=== PATIENT | male | born 2000 | race Caucasian/White ===

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

== ENCOUNTER → 2019-08-28 | Outpatient (CLI) | payer OTHER | END | disposition home or self-care (01) | LOC: LAB EV 16:38 → LAB SHORT 16:38 | DX: M10.9 Gout, unspecified (principal) | CPT/HCPCS: 84550 ==

== ENCOUNTER 2020-10-26 16:53 | Inpatient (IN) | payer OTHER ==
[~2020-10-26] VITALS: Ht 172.7 cm; Wt 86.2 kg
[2020-10-26 18:27] LABS: BASOPHILS ABSOLUTE AUTO 0.04 K/mm3 (0.00-0.23); BASOPHILS PERCENT AUTO 0 % (0-2); EOSINOPHILS ABSOLUTE AUTO 0.07 K/mm3 (0.00-0.68); EOSINOPHILS PERCENT AUTO 1 % (0-6); Hematocrit 41.4 % (37.0-53.0); Hemoglobin 14.5 g/dL (13.5-17.5); IMMATURE GRAN ABSOLUTE AUTO 0.03 K/mm3 (0.00-0.10); IMMATURE GRAN PERCENT AUTO 0 % (0-1); LYMPHOCYTES ABSOLUTE AUTO 1.34 K/mm3 (0.84-5.20); LYMPHOCYTES PERCENT AUTO 12 % (21-46); MONOCYTES ABSOLUTE AUTO 0.81 K/mm3 (0.16-1.47); MONOCYTES PERCENT AUTO 7 % (4-13); Mean Corpuscular HGB 30.3 pg (26.0-34.0); Mean Corpuscular Volume 86 fL (80-100); Mean Platelet Volume 8.8 fL (9.1-12.4); NEUTROPHILS PERCENT AUTO 80 % (41-73); Platelet Count 368 K/mm3 (150-400); RDW Coefficient Variation 11.7 % (11.7-14.2); RDW Standard Deviation 37.2 fL (35.1-46.3); Red Blood Cell Count 4.79 M/mm3 (4.30-5.90); White Blood Cell Count 11.19 K/mm3 (4.00-11.30)
[2020-10-26 18:46] LABS: Alanine Aminotransfer (ALT/SGP 70 U/L (12-78); Albumin, Blood 3.6 g/dL (3.4-5.0); Albumin/Globulin Ratio 0.8 (0.8-1.8); Alk Phos 98 U/L (50-136); Anion Gap 6 mmol/L (6-16); Aspartate Aminotrans (AST/SGOT 29 U/L (12-37); Bilirubin, Total 0.6 mg/dL (0.1-1.0); Blood Urea Nitrogen 8 mg/dL (8-24); Bun/Creatinine Ratio 11.2 (12.0-20.0); CO2, Blood 26 mmol/L (21-32); Calcium, Blood 9.1 mg/dL (8.5-10.1); Chloride, Blood 107 mmol/L (98-108); Creatinine, Blood 0.71 mg/dL (0.60-1.20); Globulin, Blood 4.5 g/dL (2.2-4.0); Glomerular Filtration Rate >60 (60-); Glucose, Blood 88 mg/dL (70-99); Potassium, Blood 3.8 mmol/L (3.5-5.5); Sodium, Blood 139 mmol/L (136-145); Total Protein, Blood 8.1 g/dL (6.4-8.2)
--- NOTE | 2020-10-26 19:45 | NUR ---
pt arrived to room 228 from er dept oriented to room layout offered gown pt wanting to wear his own clothes for now pt has had abd pain for est 5 days with poor appeatite had a exposure to covid and thought it might be that pain was getting worse and he decided to come in
[2020-10-26 20:34] LABS: SARS-Cov-2 (COVID-19) PCR, MMC NEGATIVE (NEGATIVE)
[2020-10-27 04:22] LABS: BASOPHILS ABSOLUTE AUTO 0.04 K/mm3 (0.00-0.23); BASOPHILS PERCENT AUTO 0 % (0-2); EOSINOPHILS ABSOLUTE AUTO 0.14 K/mm3 (0.00-0.68); EOSINOPHILS PERCENT AUTO 1 % (0-6); Hematocrit 39.9 % (37.0-53.0); Hemoglobin 13.8 g/dL (13.5-17.5); IMMATURE GRAN ABSOLUTE AUTO 0.04 K/mm3 (0.00-0.10); IMMATURE GRAN PERCENT AUTO 0 % (0-1); LYMPHOCYTES ABSOLUTE AUTO 2.13 K/mm3 (0.84-5.20); LYMPHOCYTES PERCENT AUTO 20 % (21-46); MONOCYTES ABSOLUTE AUTO 1.04 K/mm3 (0.16-1.47); MONOCYTES PERCENT AUTO 10 % (4-13); Mean Corpuscular HGB 30.3 pg (26.0-34.0); Mean Corpuscular HGB Conc 34.6 g/dL (31.5-36.5); Mean Corpuscular Volume 88 fL (80-100); Mean Platelet Volume 8.9 fL (9.1-12.4); NEUTROPHILS ABSOLUTE AUTO 7.34 K/mm3 (1.96-9.15); NEUTROPHILS PERCENT AUTO 68 % (41-73); Platelet Count 355 K/mm3 (150-400); RDW Coefficient Variation 11.8 % (11.7-14.2); RDW Standard Deviation 38.1 fL (35.1-46.3); Red Blood Cell Count 4.56 M/mm3 (4.30-5.90); White Blood Cell Count 10.73 K/mm3 (4.00-11.30)
[2020-10-27 04:39] LABS: Anion Gap 6 mmol/L (6-16); Blood Urea Nitrogen 7 mg/dL (8-24); Bun/Creatinine Ratio 7.6 (12.0-20.0); CO2, Blood 26 mmol/L (21-32); Calcium, Blood 9.6 mg/dL (8.5-10.1); Chloride, Blood 107 mmol/L (98-108); Creatinine, Blood 0.93 mg/dL (0.60-1.20); Glomerular Filtration Rate >60 (60-); Glucose, Blood 91 mg/dL (70-99); Potassium, Blood 3.9 mmol/L (3.5-5.5); Sodium, Blood 139 mmol/L (136-145)
--- NOTE | 2020-10-27 06:35 | NUR ---
PT NEW ADMIT THIS SHIFT FOR RUPTURED APPY. PT VSS; BP NOTED ELEVATED UPON ARRIVAL, PT ASYMPTOMATIC, BP IS WNL THIS AM. PAIN MGD W/1 NORCO W/REP RELIEF. PT HAD NO C/O N/V, NO BM. PT NPO POST MIDNIGHT PENDING SURGERY PLANNING. ABX CONT PER ORDERS.
--- NOTE | 2020-10-27 11:51 | NUR ---
PT TO OR FOR APPENDECTOMY.
--- NOTE | 2020-10-27 13:39 | NUR ---
10/27/20 1333 Betzy Jeffrey WENT OPEN AT 1307
--- NOTE | 2020-10-27 17:53 | NUR ---
SHIFT SUMMARY NO ACUTE CHANGES T/O SHIFT, A&O, C/O MINIMAL PAIN AND DID NOT REQUEST PAIN MEDS THIS AM. WENT TO SURGERY EARLY AFTERNOON FOR APPY AND ENDED UP REQUIRING A COLECTOMY. PT BACK TO ROOM, POST OP VITALS BEING COMPLETED, VSS AT THIS TIME, ON 3 L/MIN NC, A&O. PT C/O PAIN/PRESSURE IN HIS ABD, TREATED PER EMAR PRN. PT IS CURRENTLY RESTING QUIETLY c SISTER @ BEDSIDE. MIDLINE DRESSING INTACT, c RED DRAINGAGE THAT WAS PRESENT UPON RETURN TO UNIT. MAKI DRAIN PATENT AND DRAINING. ANTONY PATENT AND DRAINING DARK YELLOW CLEAR URINE.
--- NOTE | 2020-10-28 00:57 | NUR ---
BEDSIDE REPORT GIVEN TO RAE OLIVA RN.
--- NOTE | 2020-10-28 07:48 | NUR ---
SHIFT SUMMARY: PT POD#1 FOR A R CHINO COLECTOMY. MIDLINE RODRÍGUEZ C/D/I WITH A MODERATE AMOUNT OF SHADOWING PRESENT. MAKI TO LLQ COMPRESSED AND DRAINING SS DRG. 40CC EMPTIED THIS SHIFT. PT PAINFUL THROUGHOUT NIGHT. MEDICATED WITH 1MG DILAUDID PER ORDERS. PT C/O PHLEM IN HIS THROAT AND HAVING A DIFFICULT TIME COUGHING D/T PAIN. PT GIVEN INCENTIVE SPIROMETER AND WAS ABLE TO COUGH UP A MODERATE AMOUNT OF MUCUS.
--- NOTE | 2020-10-28 09:52 | NUR ---
0700-recvd report from previous shift RN lcaudine, pt sleeping in bed, bed in lowest position, call light within reach, bed rails up x 2 0920-pt stood at bedside, painful, slight nausea no vomiting [phone] boyce rounding on pt, orders received
--- NOTE | 2020-10-28 18:18 | NUR ---
shift summary: vss, no acute changes. pt reports slight nausea, medicated per mar with improvement. pt tolerating sips of clears, ice chips and juice. ASSOCIATE PUBLISHER begun; upon reassessment pt reports pain control to tolerable levels with ASSOCIATE PUBLISHER, 3-06/29. pt was able to sit up in chair for >1 hr, ambulated into the bathroom, voiding. no flatus at this, positive belching. pt received visitor this shift, is sitting up in bed currently, appears more alert than this AM. midline modesto dressing d/i, compressed, dried drainage, no new shadowing. LQ MAKI drain patent/draining serosanginous fluid.
--- NOTE | 2020-10-29 07:43 | NUR ---
SHIFT SUMMARY: PT S/P RIGHT CHINO COLECTOMY. 110CC OF SS EMPTIED OUT OF MAKI DRAIN. MIDLINE RODRÍGUEZ C/D/I. PAIN WELL MANAGED MOST OF SHIFT WITH DILAUDID BIOLOGICAL SCIENCE TECHNICIAN FISH. PT WOKE UP THIS MORNING C/O SEVERE CRAMPING WHILE AMBULATING TO BATHROOM. PT DENIES PASSING FLATUS. TOLERATING A SMALL AMOUNT OF CLEARS. HYPOACTIVE BT THROUGHOUT. PT ENCOURAGED TO AMBULATE TODAY.
--- NOTE | 2020-10-29 07:54 | NUR ---
5.8MG DILAUDID CLEARED FROM SENIOR ADMINISTRATIVE ASSISTANT THIS SHIFT
[2020-10-29 09:45] LABS: BASOPHILS ABSOLUTE AUTO 0.07 K/mm3 (0.00-0.23); BASOPHILS PERCENT AUTO 1 % (0-2); EOSINOPHILS ABSOLUTE AUTO 0.13 K/mm3 (0.00-0.68); EOSINOPHILS PERCENT AUTO 1 % (0-6); Hematocrit 40.3 % (37.0-53.0); Hemoglobin 13.9 g/dL (13.5-17.5); IMMATURE GRAN ABSOLUTE AUTO 0.09 K/mm3 (0.00-0.10); IMMATURE GRAN PERCENT AUTO 1 % (0-1); LYMPHOCYTES ABSOLUTE AUTO 1.66 K/mm3 (0.84-5.20); LYMPHOCYTES PERCENT AUTO 14 % (21-46); MONOCYTES ABSOLUTE AUTO 1.18 K/mm3 (0.16-1.47); MONOCYTES PERCENT AUTO 10 % (4-13); Mean Corpuscular HGB 30.2 pg (26.0-34.0); Mean Corpuscular HGB Conc 34.5 g/dL (31.5-36.5); Mean Corpuscular Volume 87 fL (80-100); Mean Platelet Volume 8.7 fL (9.1-12.4); NEUTROPHILS ABSOLUTE AUTO 9.19 K/mm3 (1.96-9.15); NEUTROPHILS PERCENT AUTO 75 % (41-73); Platelet Count 418 K/mm3 (150-400); RDW Coefficient Variation 11.8 % (11.7-14.2); RDW Standard Deviation 37.6 fL (35.1-46.3); Red Blood Cell Count 4.61 M/mm3 (4.30-5.90); White Blood Cell Count 12.32 K/mm3 (4.00-11.30)
[2020-10-29 10:02] LABS: Anion Gap 5 mmol/L (6-16); Blood Urea Nitrogen 8 mg/dL (8-24); Bun/Creatinine Ratio 10.4 (12.0-20.0); CO2, Blood 29 mmol/L (21-32); Calcium, Blood 9.3 mg/dL (8.5-10.1); Chloride, Blood 103 mmol/L (98-108); Creatinine, Blood 0.77 mg/dL (0.60-1.20); Glomerular Filtration Rate >60 (60-); Glucose, Blood 89 mg/dL (70-99); Sodium, Blood 137 mmol/L (136-145)
--- NOTE | 2020-10-29 17:53 | NUR ---
SHIFT SUMMARY PT A&OX4, VSS, POD2 HEMICOLECTOMY, RODRÍGUEZ DRY/INTACT & WNL, MAKI 200 MLS S/S OUT THIS SHIFT, ABD BINDER ON. DENIES FLATUS. VOIDING WELL. REID ICE CHIPS. AMBULATING HALLWAYS INDEPENDENTLY. PAIN MANAGED BY TUBE STATION ATTENDANT DILAUDID DEMAND. WILL REPORT TO ONCOMING NOC JESSICA.
--- NOTE | 2020-10-30 05:51 | NUR ---
SHIFT SUMMARY: PT POD#3 FOR A RIGHT CHINO COLECTOMY. DILAUDID SPEECH COMMUNICATION INSTRUCTOR INFUSING PER EMAR. RATE NOT INCREASED OVERNIGHT. PT C/O NAUSEA ONCE-MEDICATED WITH ZOFRAN. PT AMBULATED HALLWAY TWICE THIS SHIFT. OUT OF BED TO BATHROOM INDEPENDENTLY. MAKI DRAINING SS FLUID. NO FLATUS. HYPOACTIVE BT T/O. MINIMAL PO INTAKE.
--- NOTE | 2020-10-30 18:03 | NUR ---
SHIFT SUMMARY PT HAS BEEN IN PLEASENT MOOD T/O SHIFT. A&O X4. PT HAD C/O SEVERE PAIN IN AM HOURS. PT WAS PROVIDED HEAT THERAPY, DISTRACTION, AND WAS MEDICATED VIA CLEARANCE REPRESENTATIVE. PT VERBALIZED SOME RELEIF. PT PROVIDED SELF WITH BED BATH IN AM HOURS. PT HAS BEEN AMBULATING THROUGHOUT SHIFT. SISTER WAS PRESENT DURING VISITING HOURS AND HAS AMBULATED WITH PT THROUGHOUT VISIT. PT IS TOLLERATING ICE CHIPS W/ MINIMAL WATER SIPS. PT REPORTS FEELINGS OF "GROWLING AND MOVEMENT IN STOMACH".
--- NOTE | 2020-10-31 03:41 | NUR ---
SHIFT SUMMARY POD3 LAP APPY c R OPEN CHINO COLLECTOMY, A/O X4, VSS, TOLERATING DIET, INDEPENDENT IN THE ROOM, AMBULATES IN THE HALLWAYS, K PAD ON ABD FOR NON PHARMACOLOGIC PAIN RELIEF, PAIN REMAINS AT TOLERABLE LEVELS PER PT REPORT. NO ACUTE EVENTS THIS SHIFT. CALL LIGHT IN REACH, WILL CTM AND REPORT TO DAY RN.
--- NOTE | 2020-10-31 07:57 | NUR ---
A&OX4, REPORTS PAIN IS TOLERABLE WITH BAGGAGE HANDLING SUPERVISOR, ENCOURAGED TO CONTINUE TO AMBULATE, DENIES ANY NAUSEA, CONT. TO MONITOR FOR ANY CHANGES.
--- NOTE | 2020-10-31 18:10 | NUR ---
AMBULATED X4 TODAY, TOLERATED WELL, CONT. TO HAVE HYPOACTIVE BT'S, PT TOLERATING SOME CLEAR LIQUIDS, ICE CREAM AND SOME CRACKERS FAIRLY WELL, REPORTS HAVING SOME CRAMPING AFTER EATING, DENIES PASSING ANY FLATUS, DENIES ANY NAUSEA, PT REPORTS NOT HAVING MUCH OF AN APPETITE, MAKI DRAIN CONTINUES TO HAVE SEROUSANG. OUTPUT, PAIN TOLERABLE WITH GAME OPERATOR, START PO PAIN MEDS WHEN REID PO WELL, NO ACUTE CHANGES THIS SHIFT.
--- NOTE | 2020-11-01 11:10 | NUR ---
THIS RN RECENTLY GIVEN REPORT AND IS ASSUMING CARE OF PT. PT REPORTS PASSING GAS THIS AM, NO BM YET. REPORTS WILL WALK SOON AGAIN. ALSO REPORTS PAIN PILL WORKING GOOD VIRTUALLY NO PAIN, MAYBE A 03/31.
--- NOTE | 2020-11-01 13:20 | NUR ---
DR GU RECENTLY HERE TO SEE PT.
--- NOTE | 2020-11-01 13:37 | NUR ---
REPORT GIVEN TO GIOVANNI Alejandro RN WHO IS ASSUMING CARE OF PT AT THIS TIME.
--- NOTE | 2020-11-01 13:49 | NUR ---
ASSUMED CARE OF PATIENT FROM CONNIE Ramirez RN AT THIS TIME.
--- NOTE | 2020-11-01 17:58 | NUR ---
SHIFT SUMMARY PT POST OP FOR LAP APPY WITH HEMICOLECTOMY. PT IND IN THE ROOM AND PAIN IS CONTROLLED WELL WITH ORAL PAIN MEDS. DRESSING TO MIDLINE AND MAKI DRAIN IN PLACE. MAY POSSIBLY DC TOMORROW. VSS. WILL REPORT TO ONCOMING RN.
--- NOTE | 2020-11-02 07:44 | NUR ---
SHIFT SUMMARY S/P R CHINO COLECTOMY, A/O X4, VSS, TOLERATING DIET, BM THIS SHIFT, AMBULATING, VOIDING, PAIN CONTROLLED c ORAL PAIN MEDS. PLAN TO DC TODAY, NO ACUTE EVENTS THIS SHIFT. CALL LIGHT IN REACH, REPORT GIVEN TO DAY RN.
[2020-11-02] MEDS ORDERED: HYDR1TAB94 PO (09:09)
--- NOTE | 2020-11-02 10:17 | NUR ---
MAKI REMOVED BY DR. GU. PT TO DISCHARGE HOME.
--- NOTE | 2020-11-02 11:21 | NUR ---
DISCHARGE PT IS A/O X4, IND IN ROOM, TOLERATING PO INTAKE AND VOIDING. PAIN MANAGED WITH PO PAIN MED PER ORDERS. DC INSTRUCTIONS REVIEWED WITH PT; REPORTS UNDERSTANDING AND NO CONCERNS OR QUESTIONS. IV'S X2 DC'D WNL. SCRIPT AND DC INSTRUCTIONS SENT WITH PT. DRESSING SUPPLIES ALSO SENT WITH PT. PT WAITING FOR RIDE AT THIS TIME.
--- NOTE | 2020-11-02 12:31 | NUR ---
PT DISCHARGED AT 1230. GIVEN WHEELCHAIR RIDE OUT TO VEHICLE WHERE FRIEND IS PICKING HIM UP. PERSONAL BELONGINGS SENT WITH PT.
== END 2020-11-02 17:50 | disposition home or self-care (01) | DRG 330 ==
LOC: ER 16:53 → SURS 17:51 → ERHOLD 17:51 → SURS 19:26
PROVIDERS: Physician Assistant; ADMIT Surgery
PROC: 0WJG4ZZ Inspection of Peritoneal Cavity, Percutaneous Endoscopic Approach (ICD-10-PCS; 2020-10-27)
PROC: 0DTF0ZZ Resection of Right Large Intestine, Open Approach (ICD-10-PCS; principal; 2020-10-27 11:30)
PROC: 0DTJ0ZZ Resection of Appendix, Open Approach (ICD-10-PCS; 2020-10-27 11:30)
DX: K35.33 Acute appendicitis with perforation, localized peritonitis, and gangrene, with abscess (principal); K56.7 Ileus, unspecified; Z20.822 Contact with and (suspected) exposure to COVID-19; Z98.890 Other specified postprocedural states
CPT/HCPCS: 36415; 80048; 80053; 85025; 88307; 96365; 96366; 99284-25; A9270; J1100; J1170; J1650; J2250; J2405; J2543; J2704; J3010; J7030; J7050; J7120; U0004

== ENCOUNTER → 2020-10-26 | Outpatient (CLI) | payer OTHER ==
[~2020-10-26] MED LIST: HYDR1TAB94 PO
[2020-10-26 15:35] LABS: BASOPHILS ABSOLUTE AUTO 0.04 K/mm3 (0.00-0.23); BASOPHILS PERCENT AUTO 0 % (0-2); EOSINOPHILS ABSOLUTE AUTO 0.16 K/mm3 (0.00-0.68); EOSINOPHILS PERCENT AUTO 1 % (0-6); Hematocrit 42.9 % (37.0-53.0); IMMATURE GRAN ABSOLUTE AUTO 0.04 K/mm3 (0.00-0.10); IMMATURE GRAN PERCENT AUTO 0 % (0-1); LYMPHOCYTES ABSOLUTE AUTO 1.33 K/mm3 (0.84-5.20); LYMPHOCYTES PERCENT AUTO 11 % (21-46); MONOCYTES ABSOLUTE AUTO 0.83 K/mm3 (0.16-1.47); MONOCYTES PERCENT AUTO 7 % (4-13); Mean Corpuscular HGB 29.7 pg (26.0-34.0); Mean Corpuscular Volume 85 fL (80-100); Mean Platelet Volume 8.7 fL (9.1-12.4); NEUTROPHILS ABSOLUTE AUTO 10.24 K/mm3 (1.96-9.15); NEUTROPHILS PERCENT AUTO 81 % (41-73); Platelet Count 399 K/mm3 (150-400); RDW Coefficient Variation 11.9 % (11.7-14.2); Red Blood Cell Count 5.05 M/mm3 (4.30-5.90); White Blood Cell Count 12.64 K/mm3 (4.00-11.30)
[2020-10-26 15:46] LABS: Alanine Aminotransfer (ALT/SGP 78 U/L (12-78); Albumin, Blood 3.9 g/dL (3.4-5.0); Albumin/Globulin Ratio 0.8 (0.8-1.8); Alk Phos 113 U/L (40-126); Amylase, Blood 22 U/L (25-115); Anion Gap 11 mmol/L (6-16); Aspartate Aminotrans (AST/SGOT 29 U/L (12-37); Bilirubin, Total 0.5 mg/dL (0.1-1.0); Blood Urea Nitrogen 7 mg/dL (8-24); Bun/Creatinine Ratio 8.4 (12.0-20.0); CO2, Blood 27 mmol/L (21-32); Calcium, Blood 9.1 mg/dL (8.5-10.1); Chloride, Blood 102 mmol/L (98-108); Creatinine, Blood 0.83 mg/dL (0.60-1.20); Globulin, Blood 5.1 g/dL (2.2-4.0); Glomerular Filtration Rate >60 (60-); Glucose, Blood 99 mg/dL (70-99); Sodium, Blood 140 mmol/L (136-145)
== END | disposition home or self-care (01) ==
LOC: LAB 15:30 → LAB SHORT 15:30
PROVIDERS: General Practice
DX: R10.9 Unspecified abdominal pain (principal)
CPT/HCPCS: 80053; 82150; 85025

== ENCOUNTER → 2024-10-09 | Outpatient (CLI) | payer OTHER | LOC: LAB 15:37 → LAB SHORT 15:37 | DX: J02.9 Acute pharyngitis, unspecified (principal) | CPT/HCPCS: 87081; 87147 ==